=== PATIENT | male | born 1965 ===

== ENCOUNTER 2019-01-14 11:41 | Outpatient (CLI) | payer OTHER ==
--- NOTE | 2019-01-14 15:43 | Diagnostic Imaging Report ---
Indication: Testicular pain, epididymitis Technique: US Testicular Scrotum Comparison: None Findings: Raphae view demonstrates color flow in the bilateral testicles. The right testicle measures 3 x 2.2 x 2.8 cm/12.3 mL. Color flow is demonstrated within the right testicle. Echogenicity of the right testicle is heterogeneous with a focal area of hypoechogenicity and increased color flow to the inferior aspect of the right testicle which, given the adjacent enlarged and hyperemic epididymis, is concerning for area of orchitis. Possibility of mass however cannot be excluded and short-term follow-up exam after appropriate treatment is recommended. An epididymal head cyst is noted on the right. There is trace hydrocele. There is dilatation of venous structures in the pampiniform plexus up to 2 mm suggesting very mild varicocele. There is scrotal wall thickening on the right. The left testicle measures 3.8 x 2 x 2.8 cm/14.4 mL. Color and Doppler flow is demonstrated in left testicle. Epididymis is normal in appearance. Trace hydroceles noted. There is dilatation of venous structures in the pampiniform plexus up to 2.7 mm. Small epididymal head cysts noted on the left. Incidental note is made of an enlarged, heterogeneous prostate with a volume of approximately 39 mm. There are central prostatic calcifications. There is also bladder wall thickening which may be related to underdistention. IMPRESSION: * Findings suggesting epididymo-orchitis involving the right testicle. * Area heterogeneous echotexture/hypoechogenicity in the right testicle likely related to changes from infection/orchitis. Testicular abscess or infarction unlikely as color flow noted within these areas. The possibility of a testicular mass however cannot be excluded and short-term follow-up after appropriate treatment is recommended to ensure resolution. * Scrotal wall thickening without subcutaneous fluid collection/abscess. * No evidence of testicular torsion. Color and Doppler flow visualized in the bilateral testicles. * Bilateral varicoceles, with veins on the left larger than the right. * Mildly enlarged and heterogeneous prostate (prostate volume 39 mL). Findings may be on the basis of BPH. Correlation with prostate exam and PSA recommended. * Bladder wall thickening likely on the basis of underdistention. Consider correlation with urinalysis. Salient findings discussed with Dr. Olson approximately 2:40 PM 01/14/2019.
== END 2019-01-14 13:41 | disposition home or self-care (01) ==
LOC: RAD 11:41
DX: N50.819 Testicular pain, unspecified (principal); N45.1 Epididymitis; I86.1 Scrotal varices
CPT/HCPCS: 76870

== ENCOUNTER → 2019-01-31 | Outpatient (CLI) | payer OTHER ==
--- NOTE | 2019-01-31 14:01 | Diagnostic Imaging Report ---
Indication:Scrotal pain. Follow-up Technique: Real time grayscale and duplex Doppler imaging of the scrotum performed. Comparison: 01/24/2019 ultrasound scrotum Findings: The right testis is much less hyperemic currently compared to the previous study. In addition the volume of the right testis has decreased indicative of improving orchitis and edema. Hypoechogenicity within the right testis and in particular within the inferior pole of the right testis has improved since the last study. Currently at the inferior pole of the testis there are prominent veins that are at the periphery of the testis extending to the tunica and into the extratesticular soft tissues. There is no mass. The right epididymis is again noted to be hypoechogenic slightly vascular and enlarged but has improved in appearance. Right testis measures 3 x 1.8 x 2.4 cm/8.46 cc. Left testis is 3.7 x 2.1 x 2.7 cm/13.5 cc. No significant hydrocele identified. Above the testis on the left there is serpiginous increased vascularity is osteophytic change with Valsalva but this is likely represents a small varicocele. There is also a probable varicocele on the right which does increase with Valsalva. IMPRESSION: Evidence of improving right epididymo-orchitis with decreased volume of the right testis and less hyperemia suggestive of improving edema and inflammation. There is evidence of persistent epididymitis given the epididymis which remains boggy and enlarged. No evidence of testicular mass or torsion. Small bilateral varicoceles
== END | disposition home or self-care (01) ==
LOC: ULS 12:38
DX: N50.82 Scrotal pain (principal); I86.1 Scrotal varices; N45.3 Epididymo-orchitis
CPT/HCPCS: 76870

== ENCOUNTER → 2019-03-01 | Outpatient (CLI) | payer OTHER ==
--- NOTE | 2019-03-01 16:06 | Diagnostic Imaging Report ---
Indications: Testicular pain Technique: Grayscale and duplex images of the scrotum Comparison: 01/31/2019 Findings:The right testicle measures 3.3cm in length. It demonstrates normal echogenicity. Normal Doppler flow. Normal epididymis. Previously demonstrated epididymal enlargement and hyperemia has improved significantly. There is 9 x 3 mm cyst in the epididymal head, probably unchanged from the prior study. No hydrocele demonstrated The left testicle measures 2.9 cm in length. It demonstrates normal echogenicity and normal Doppler flow. Normal epididymis. There is a trace hydrocele. There is an upper pole punctate calcification Impression: Previously demonstrated right testicular and especially epididymal hyperemia and epididymal enlargement has essentially resolved, consistent with improving orchitis/epididymitis. Incidental findings as noted, including right epididymal cyst versus spermatocele, small left hydrocele, left testicular microcalcification
== END | disposition home or self-care (01) ==
LOC: ULS 14:28
DX: N50.819 Testicular pain, unspecified (principal); N43.3 Hydrocele, unspecified
CPT/HCPCS: 76870